=== PATIENT | female | born 1970 | race Caucasian/White ===

== ENCOUNTER 2021-06-17 06:17 | Emergency (ER) | payer SELFPAY ==
[2021-06-17 06:19] VITALS: BP 124/82; PULSE 83; RESP 20; TEMP 36.7; O2SAT 97; BMI 37.9
--- NOTE | 2021-06-17 06:24 | HMH.EDGENADL ---
ED Disposition Condition on Discharge: Good - Critical Care Critical Care Time: No <Fatou Canela Y - Last Filed: 06/17/21 08:00> <Sal Owens - Last Filed: 06/17/21 09:10> Clinical Impression: Elevated liver enzymes Abdominal pain Qualifiers: Abdominal location: generalized Qualified Code(s): R10.84 - Generalized abdominal pain Disposition: Home, Self-Care Instructions: DI for Acute Abdominal Pain Additional Instructions: see pcp for follow up Referrals: Provider,Referral, MD [Primary Care Provider] - Attestation: On 06/17/21, the high probability of a clinically significant, sudden or life threatening deterioration of the following system(s) required my full and direct attention, intervention and personal management. The time I documented below is in addition to time spent performing reported procedures but includes the following listed in this critical care notation. Medical Decision Making - Medical Records Medical records reviewed: Yes: I reviewed the patient's medical records. - Shantanu Inquiry Pt receiving controlled substance: No - Lab Data Result diagrams: 06/17/21 07:38 06/17/21 07:38 <Fatou Canela Y - Last Filed: 06/17/21 08:00> - Lab Data Lab results reviewed: Yes: I reviewed the patient's lab results. Result diagrams: 06/17/21 07:38 06/17/21 07:38 - CT Data CT Scan: Abdomen, Pelvis Time Received: 09:[address] Reviewed: Yes: I have viewed the radiologist's interpretation Preliminary Findings: Normal/NAD - ECG Data Tracing #1 Normal Sinus Rhythm: Yes Ischemic changes: non-specific ST-T wave changes <Sal Owens S - Last Filed: 06/17/21 09:10> Vital Signs: 06/17/21 06:19 06/17/21 07:00 06/17/21 07:31 Temperature 98.0 F Temperature Source Oral Pulse Rate 82 81 Pulse Rate [Right] 83 Respiratory Rate 20 16 16 Blood Pressure 119/86 128/68 Blood Pressure [Right Arm] 124/82 Blood Pressure Mean 96 88 Blood Pressure Mean [Right Arm] 96 Blood Pressure Source [Right Arm] Automatic Cuff 02 Sat by Pulse Oximetry 97 97 97 Oxygen Delivery Method Room Air 06/17/21 08:24 Temperature Temperature Source Pulse Rate 74 Pulse Rate [Right] Respiratory Rate 16 Blood Pressure 124/83 Blood Pressure [Right Arm] Blood Pressure Mean 96 Blood Pressure Mean [Right Arm] Blood Pressure Source [Right Arm] 02 Sat by Pulse Oximetry 97 Oxygen Delivery Method - Lab Data Lab Results 06/17/21 06:30: Urine Color Yellow, Urine Appearance Clear, Urine pH 6.0, Ur Specific Brenton 1.025, Urine Protein Negative, Urine Glucose (UA) Negative, Urine Ketones Negative, Urine Blood Negative, Urine Nitrate Negative, Urine Bilirubin Negative, Urine Urobilinogen 2.0, Ur Leukocyte Esterase Negative, Urine RBC None, Urine WBC 3-5, Ur Squamous Epith Cells 3-5, Urine Bacteria None 06/17/21 07:38: WBC 7.6, RBC 4.92, Hgb 14.8, Hct 47.6 H, MCV 96.8, MCH 30.1, MCHC 31.1 L, RDW 13.5, Plt Count 189, MPV 10.7 H, Neut % (Auto) 53.8, Lymph % (Auto) 34.6, Robeson % (Auto) 7.0, Eos % (Auto) 3.5, Baso % (Auto) 1.0, Neut # (Auto) 4.1, Lymph # (Auto) 2.6, Robeson # (Auto) 0.5, Eos # (Auto) 0.3, Baso # (Auto) 0.1 06/17/21 07:38: Sodium 144, Potassium 4.2, Chloride 109 H, Carbon Dioxide 30, Anion Gap 9.2, BUN 12, Creatinine 0.70, Estimated Creat Clear 146, Estimated GFR 88, Est GFR ( Amer) 107, Glucose 96, Calcium 9.5, Total Bilirubin 0.3, AST 220 H, ALT 172 H, Alkaline Phosphatase 157 H, Troponin I < 0.01, Total Protein 7.2, Albumin 3.9, Globulin 3.3 H, Albumin/Globulin Ratio 1.2 06/17/21 07:38: Amylase 66, Lipase 35 Orders (Tests/Meds): ED MEDICATIONS Discontinued Medications Generic Name Dose Route Start Last Admin Trade Name Freq PRN Reason Stop Dose Admin Iopamidol 75 ml 06/17/21 07:56 06/17/21 07:56 Iopamidol-370 (76%);100ml Bottle IV 06/17/21 07:57 75 ml ONCE ONE Administration Sodium Chloride 10 ml 10/01/21 07:56 06/17/21 07:56 Sodium Chloride 0.9%
[2021-06-17 06:44] LABS: Microscopic, Urine URINE MICROSCOPIC (MICROSCOPIC)
[2021-06-17 06:46] LABS: Appearance,Urine CLEAR (Clear); Bilirubin,Urine Negative (Negative); Blood, Urine Negative (Negative); Color,Urine YELLOW (Yellow); Glucose,Urine (UA) Negative (Negative); Ketones,Urine Negative (Negative); Leukocyte Esterase,Urine Negative (Negative); Nitrate,Urine Negative (Negative); Protein,Urine Negative (Negative); Specific Gravity, Urine 1.025 (1.005-1.030)
[2021-06-17 07:00] VITALS: BP 119/86; PULSE 82; RESP 16; O2SAT 97
--- NOTE | 2021-06-17 07:06 | CT_ITS ---
PROCEDURE: CT ABDOMEN PELVIS W CON CLINICAL INDICATION: abdominal pain COMPARISON: No exams were available for comparison TECHNIQUE: IV Contrast: 75ML Isovue 370 Oral Contrast None Axial images obtained with sagittal and coronal reformats. All CT scans at the facility use one or more dose reduction, viz: automated exposure control, ma/kV adjustment per patient size (including targeted exams where dose is matched to indication, i.e. head), or iterative reconstruction technique. FINDINGS: LOWER THORAX: Atelectatic changes are present in the right lung base posteriorly ABDOMEN & PELVIS: There is a small hiatal hernia. There is mild diffuse fatty liver infiltration. Prior cholecystectomy. No biliary dilatation. The spleen, adrenal glands, pancreas, and kidneys have an unremarkable appearance. No intestinal obstruction or free air. No evidence of appendicitis. No evidence of diverticulitis. There are few scattered colonic diverticula. Prior hysterectomy Degenerative disc disease L5-S1. Mild wedge compression changes of L2 which appears chronic. Tiny umbilical hernia containing fat IMPRESSION: 1. No acute finding. 2. Small hiatal hernia and other nonacute findings as detailed above.. Dictated by: Eliazar Go MD 06/17/2021 08:19 Eliazar Go MD in [facility] 06/17/2021 08:19
[2021-06-17 07:31] VITALS: BP 128/68; PULSE 81; RESP 16; O2SAT 97
--- NOTE | 2021-06-17 07:40 | PC.NURSE ---
Pt to CT
[2021-06-17 07:45] LABS: Basophils # 0.1 K/mm3 (0-0.2); Eosinophils # 0.3 K/mm3 (0.0-0.4); Eosinophils % 3.5 % (0.1-12.0); Hematocrit 47.6 % (37.0-47.0); Hemoglobin 14.8 g/dL (12.2-16.2); Lymphocytes # 2.6 K/mm3 (0.7-4.5); Lymphocytes % 34.6 % (10-50); Mean Corpuscular HGB Conc 31.1 g/dL (31.8-35.4); Mean Corpuscular Hemoglobin 30.1 pg (27.0-31.2); Mean Corpuscular Volume 96.8 fl (81-99); Mean Platelet Volume 10.7 fl (7.4-10.4); Monocytes # 0.5 K/mm3 (0.1-1.0); Neutrophils # 4.1 K/mm3 (1.8-7.8); Neutrophils % 53.8 % (37.0-80.0); Platelet Count 189 K/mm3 (142-424); Red Blood Count 4.92 M/mm3 (4.20-5.40); Red Cell Distribution Width 13.5 % (11.5-17.5); White Blood Count 7.6 K/mm3 (4.8-10.8)
[2021-06-17 07:50] LABS: Chloride 109 mmol/L (98-107); Potassium 4.2 mmoL/L (3.5-5.1); Sodium 144 mmol/L (136-145)
[2021-06-17 07:53] LABS: Alanine Aminotransferase 172 U/L (12-78); Albumin Level 3.9 g/dl (3.5-5.0); Albumin/Globulin Ratio 1.2 (1.1-1.8); Alkaline Phosphatase 157 U/L (38-126); Anion Gap 9.2 mEq/L (5-15); Aspartate Amino Transferase 220 U/L (14-36); Bilirubin,Total 0.3 mg/dl (0.2-1.3); Blood Urea Nitrogen 12 mg/dl (7-17); Carbon Dioxide 30 mmol/L (22.0-30.0); Creatinine Clearance Estimated 146 mL/min (50-200); Estimated Glomerular Filt Rate 88 ml/min (>60); GFR (African American) 107 ML/MIN (>60); Globulin 3.3 g/dL (1.3-3.2); Total Protein,Serum 7.2 g/dl (6.3-8.2)
[2021-06-17 07:54] LABS: Calcium 9.5 mg/dl (8.4-10.2); Glucose 96 mg/dl (74-100)
[2021-06-17 08:07] LABS: Troponin I < 0.01 ng/ml (0.00-0.034)
[2021-06-17 08:24] VITALS: BP 124/83; PULSE 74; RESP 16; O2SAT 97
[2021-06-17 08:35] LABS: Amylase 66 U/L (30-110)
[2021-06-17 08:36] LABS: Lipase 35 U/L (23-300)
--- NOTE | 2021-06-17 08:36 | ECG_ITS ---
APPROVED REPORT Exam: Resting ECG HR:75 bpm ECG Measurements Heart Rate [address] 130 P 57 QRSd 80 QRS 72 QT 396 T 49 QTc 442 Conclusion Normal sinus rhythm Low voltage QRS Borderline ECG Electronically signed by : Fabio Sales MD 06/17/2021 19:55:37
[2021-06-17 09:24] VITALS: BP 105/65; PULSE 72; RESP 16; TEMP 36.8; O2SAT 96
== END 2021-06-17 09:25 | disposition home or self-care (01) ==
PROVIDERS: Emergency Provider Emergency Medicine
DX: R10.84 Generalized abdominal pain (principal); Z85.42 Personal history of malignant neoplasm of other parts of uterus; Z88.0 Allergy status to penicillin; Z91.040 Latex allergy status
CPT/HCPCS: 74177; 80053; 81001; 82150; 83690; 84484; 85025; 93005; 99283; Q9967

== ENCOUNTER 2021-09-24 08:29 | Emergency (ER) | payer SELFPAY ==
[2021-09-24] VITALS (12 sets, daily range): BP systolic 92–144; BP diastolic 47–88; PULSE 68–87; RESP 17–18; TEMP 36.4–36.6; O2SAT 95–99; BMI 38.0
--- NOTE | 2021-09-24 08:36 | XR_ITS ---
PROCEDURE INFORMATION: Exam: XR Chest Exam date and time: 09/24/2021 8:36 AM Age: 50 years old Clinical indication: Cough TECHNIQUE: Imaging protocol: XR of the chest. Views: 1 view. COMPARISON: No relevant recent comparison exams are available. FINDINGS: Lungs: Prominent lung markings/peribronchial thickening without definite evidence of consolidation. Pleural spaces: No evidence of pleural effusion or pneumothorax. Heart/Mediastinum: Mild cardiomegaly with mild central pulmonary vascular congestion. Bones/joints: Chronic degenerative changes in the visualized spine. IMPRESSION: Chronic cardiopulmonary changes without evidence of an active lung parenchymal lesion. COMMENTS: Haziness in the lower lung chiang likely due to breast shadow rather than consolidation.
--- NOTE | 2021-09-24 08:45 | HMH.EDGENADL ---
ED Disposition Clinical Impression: Belching Abdominal pain Qualifiers: Abdominal location: upper abdomen, unspecified Qualified Code(s): R10.10 - Upper abdominal pain, unspecified Disposition: Home, Self-Care Condition on Discharge: Fair Instructions: DI for Abdominal Pain-Adult, DI for Nausea -- Adult Prescriptions: Dicyclomine HCl [Bentyl 10mg capsule] 10 mg PO TID PRN #12 cap PRN Reason: Cramping Transmission Status: Received by [facility] #[id number] Referrals: Provider,Referral, [Primary Care Provider] - Time of Disposition: :13 - Critical Care Critical Care Time: No Attestation: On , the high probability of a clinically significant, sudden or life threatening deterioration of the following system(s) required my full and direct attention, intervention and personal management. The time I documented below is in addition to time spent performing reported procedures but includes the following listed in this critical care notation. Medical Decision Making - Medical Records Medical records reviewed: Yes: I reviewed the patient's medical records. - Shantanu Inquiry Pt receiving controlled substance: No Vital Signs: 09/24/21 08:30 09/24/21 08:36 09/24/21 09:15 Temperature 97.6 F Temperature Source Oral Pulse Rate 84 82 Pulse Rate [Left Radial] 87 Respiratory Rate 18 18 18 Blood Pressure 144/88 H 135/80 Blood Pressure [Right Arm] 144/88 H Blood Pressure Mean 101 Blood Pressure Mean [Right Arm] 106 Blood Pressure Source [Right Arm] Automatic Cuff Blood Pressure Position [Right Arm] Sitting 02 Sat by Pulse Oximetry 98 98 96 Oxygen Delivery Method Room Air 09/24/21 09:30 09/24/21 10:25 09/24/21 11:00 Temperature Temperature Source Pulse Rate 76 72 70 Pulse Rate [Left Radial] Respiratory Rate 18 18 18 Blood Pressure 124/75 104/68 L 102/55 L Blood Pressure [Right Arm] Blood Pressure Mean 100 80 70 Blood Pressure Mean [Right Arm] Blood Pressure Source [Right Arm] Blood Pressure Position [Right Arm] 02 Sat by Pulse Oximetry 95 99 99 Oxygen Delivery Method 09/24/21 11:30 09/24/21 12:00 09/24/21 12:30 Temperature Temperature Source Pulse Rate 70 68 75 Pulse Rate [Left Radial] Respiratory Rate 18 18 18 Blood Pressure 116/76 109/73 L 116/60 Blood Pressure [Right Arm] Blood Pressure Mean 89 85 78 Blood Pressure Mean [Right Arm] Blood Pressure Source [Right Arm] Blood Pressure Position [Right Arm] 02 Sat by Pulse Oximetry 95 96 98 Oxygen Delivery Method 09/24/21 13:00 09/24/21 13:30 09/24/21 14:42 Temperature 98 F Temperature Source Pulse Rate 69 69 71 Pulse Rate [Left Radial] Respiratory Rate 18 18 17 Blood Pressure 96/57 L 92/47 L 110/62 Blood Pressure [Right Arm] Blood Pressure Mean 70 62 Blood Pressure Mean [Right Arm] Blood Pressure Source [Right Arm] Blood Pressure Position [Right Arm] 02 Sat by Pulse Oximetry 99 99 Oxygen Delivery Method Room Air - Lab Data Lab Results 09/24/21 09:00: WBC 9.2, RBC 5.14, Hgb 15.3, Hct 49.3 H, MCV 95.9, MCH 29.7, MCHC 31.0 L, RDW 13.8, Plt Count 207, MPV 11.3 H, Neut % (Auto) 49.3, Lymph % (Auto) 40.5, Whitley % (Auto) 7.5, Eos % (Auto) 2.7, Baso % (Auto) 4.1 H, Neut # (Auto) 4.5, Lymph # (Auto) 3.7, Whitley # (Auto) 0.7, Eos # (Auto) 0.3, Baso # (Auto) 0.4 H 09/24/21 09:00: PT 10.2, INR 0.90, APTT 25.9 09/24/21 09:00: Sodium 140, Potassium 3.8, Chloride 109 H, Carbon Dioxide 27, Anion Gap 7.8, BUN 13, Creatinine 0.70, Estimated Creat Clear 146, Estimated GFR 88, Est GFR ( Amer) 107, Glucose 118 H, Calcium 9.7, Total Bilirubin 0.4, AST 183 H, ALT 165 H, Alkaline Phosphatase 147 H, Total Protein 7.3, Albumin 4.1, Globulin 3.2, Albumin/Globulin Ratio 1.3, Lipase 50 09/24/21 09:00: NT-Pro-B Natriuret Pep 35.9 09/24/21 13:51: Lactate 0.8 Result diagrams: 09/24/21 09:00 09/24/21 09:00 Orders (Tests/Meds): ED MEDICATIONS Discontin
[2021-09-24 09:17] LABS: Basophils # 0.4 K/mm3 (0-0.2); Basophils % 4.1 % (0.1-2.0); Eosinophils # 0.3 K/mm3 (0.0-0.4); Eosinophils % 2.7 % (0.1-12.0); Hematocrit 49.3 % (37.0-47.0); Hemoglobin 15.3 g/dL (12.2-16.2); Lymphocytes # 3.7 K/mm3 (0.7-4.5); Lymphocytes % 40.5 % (10-50); Mean Corpuscular Hemoglobin 29.7 pg (27.0-31.2); Mean Corpuscular Volume 95.9 fl (81-99); Mean Platelet Volume 11.3 fl (7.4-10.4); Monocytes # 0.7 K/mm3 (0.1-1.0); Monocytes % 7.5 % (1.7-9.3); Neutrophils # 4.5 K/mm3 (1.8-7.8); Neutrophils % 49.3 % (37.0-80.0); Platelet Count 207 K/mm3 (142-424); Red Blood Count 5.14 M/mm3 (4.20-5.40); Red Cell Distribution Width 13.8 % (11.5-17.5); White Blood Count 9.2 K/mm3 (4.8-10.8)
--- NOTE | 2021-09-24 09:17 | CT_ITS ---
PROCEDURE INFORMATION: Exam: CT Abdomen And Pelvis With Contrast Exam date and time: 09/24/2021 9:17 AM Age: 50 years old Clinical indication: Bloating and vomiting; Additional info: Abdominal pain, vomiting TECHNIQUE: Imaging protocol: Computed tomography of the abdomen and pelvis with contrast. Radiation optimization: All CT scans at this facility use at least one of these dose optimization techniques: automated exposure control; mA and/or kV adjustment per patient size (includes targeted exams where dose is matched to clinical indication); or iterative reconstruction. Contrast material: ISOVUE; Contrast volume: 75 ml; Contrast route: IV; COMPARISON: CT ABDOMEN PELVIS W CON 06/17/2021 7:40 AM FINDINGS: Lungs: Interstitial prominence and mild dependent airspace disease. Stable 5 mm right lower lobe nodule.For patients at low risk (minimal or absent history of smoking and of other known risk factors), no routine follow-up is indicated. For patients at high risk (history of smoking or of other known risk factors), consider optional CT Chest at 12 months. (Reference: [facility]). Small hiatal hernia. Liver: Fatty infiltration of the liver. Gallbladder and bile ducts: Status post cholecystectomy. Pancreas: No pancreatic mass or ductal dilatation. Spleen: No splenomegaly. Adrenal glands: Unremarkable adrenals. Kidneys and ureters: Normal renal morphology. No hydronephrosis. Stomach and bowel: Prominent stool and diverticula, without pericolonic inflammation. Appendix: No acute appendicitis. Intraperitoneal space: No significant free fluid. Vasculature: Normal caliber of the abdominal aorta. Lymph nodes: Subcentimeter lymph nodes. Urinary bladder: Bladder dilatation. Reproductive: Status post hysterectomy. Bones/joints: Degenerative change and disc bulging. Chronic compression deformities in the lumbar spine. Soft tissues: Fat containing umbilical hernia. IMPRESSION: 1. No acute inflammatory process in the abdomen or pelvis. 2. Additional findings as described above.
[2021-09-24 09:25] LABS: Alanine Aminotransferase 165 U/L (12-78); Albumin Level 4.1 g/dl (3.5-5.0); Albumin/Globulin Ratio 1.3 (1.1-1.8); Alkaline Phosphatase 147 U/L (38-126); Anion Gap 7.8 mEq/L (5-15); Aspartate Amino Transferase 183 U/L (14-36); Bilirubin,Total 0.4 mg/dl (0.2-1.3); Blood Urea Nitrogen 13 mg/dl (7-17); Calcium 9.7 mg/dl (8.4-10.2); Carbon Dioxide 27 mmol/L (22.0-30.0); Chloride 109 mmol/L (98-107); Creatinine Clearance Estimated 146 mL/min (50-200); Estimated Glomerular Filt Rate 88 ml/min (>60); GFR (African American) 107 ML/MIN (>60); Globulin 3.2 g/dL (1.3-3.2); Glucose 118 mg/dl (74-100); Lipase 50 U/L (23-300); Potassium 3.8 mmoL/L (3.5-5.1); Sodium 140 mmol/L (136-145); Total Protein,Serum 7.3 g/dl (6.3-8.2)
[2021-09-24 09:27] LABS: Activated Partial Thrombo Time 25.9 seconds (22.8-30.6); Prothrombin Time 10.2 seconds (10.1-12.5)
[2021-09-24 09:34] LABS: NT Pro Brain Natriuretic Pep. 35.9 pg/mL (0-125)
--- NOTE | 2021-09-24 11:29 | PC.NURSE ---
HAD TO WASTE 1 BENTYL PT DROPPED ON FLOOR
[2021-09-24 14:10] LABS: Lactic Acid 0.8 mmol/L (0.7-2.1)
--- NOTE | 2021-09-28 00:32 | PC.NURSE ---
Medical records sent to [facility]
== END 2021-09-24 14:45 | disposition home or self-care (01) ==
PROVIDERS: Emergency Provider Emergency Medicine
DX: R10.10 Upper abdominal pain, unspecified (principal); R14.2 Eructation; R06.02 Shortness of breath; R09.89 Other specified symptoms and signs involving the circulatory and respiratory systems
CPT/HCPCS: 71045; 74177; 80053; 83605; 83690; 83880; 85025; 85610; 85730; 99282; Q9967

== ENCOUNTER → 2022-01-27 13:43 | Outpatient (CLI) | payer SELFPAY | LOC: COVID.OUT 13:46 | PROVIDERS: Visit Provider Nurse Practitioner Family | DX: Z01.812 Encounter for preprocedural laboratory examination (principal); Z11.52 Encounter for screening for COVID-19 | CPT/HCPCS: C9803; U0003; U0005 ==

== ENCOUNTER 2022-01-27 14:00 | Emergency (ER) | payer SELFPAY ==
--- NOTE | 2022-01-27 14:04 | XR_ITS ---
FINAL REPORT CLINICAL HISTORY: PAIN. shoulder pain x5 months. no recent injury or trauma. FINDINGS: RIGHT SHOULDER 3 views of the right shoulder were obtained. There is no acute fracture or dislocation. There are mild degenerative changes of the acromioclavicular joint. There is no soft tissue abnormality. IMPRESSION: Mild degenerative change of the acromioclavicular joint. No acute bony abnormality. Reviewed, Interpreted and Dictated by Efren Epps III, MD Transcribed by Elsa Josue Authenticated by Efren Epps III, MD on 01/27/2022 03:13:[address] [facility]
--- NOTE | 2022-01-27 14:04 | XR_ITS ---
FINAL REPORT CLINICAL HISTORY: PAIN. shoulder pain x5 months. no recent injury or trauma. FINDINGS: LEFT SHOULDER 3 views of the left shoulder were obtained. There is no acute fracture or dislocation. There are mild degenerative changes of the acromioclavicular joint. There is no soft tissue abnormality. IMPRESSION: Mild degenerative change of the acromioclavicular joint. No acute bony abnormality Reviewed, Interpreted and Dictated by Efren Epps III, MD Transcribed by Elsa Josue Authenticated by Efren Epps III, MD on 01/27/2022 03:13:23 PM [facility]
[2022-01-27 14:25] VITALS: BP 133/66; PULSE 84; RESP 19; TEMP 36.6; O2SAT 100; BMI 22.1
--- NOTE | 2022-01-27 14:37 | HMH.EDUTC ---
[facility] [place] Clinical Impression: Bilateral shoulder pain Qualifiers: Chronicity: unspecified Qualified Code(s): M25.511 - Pain in right shoulder Disposition: Home, Self-Care Condition on Discharge: Good Instructions: Shoulder Tendinopathy, DI for Shoulder Pain Additional Instructions: Rest the extremities. Follow up with Dr. Arriola (orthopedics). I put in a referral but you need to call his office and schedule an appointment. Follow up with your regular doctor. GO TO THE ER FOR ANY WORSENING SYMPTOMS Referrals: Provider,MD Coleen [Primary Care Provider] - Sunil Arriola MD [Staff Physician] - Time of Disposition: 15:45 Medical Decision Making - Medical Records Medical records reviewed: No: I reviewed the patient's medical records. - Shantanu Inquiry Pt receiving controlled substance: No Vital Signs: 01/27/22 14:25 01/27/22 15:54 Temperature 97.8 F 97.8 F Temperature Source Oral Pulse Rate 84 Pulse Rate [Right Brachial] 84 Respiratory Rate 19 19 Blood Pressure 133/66 Blood Pressure [Right Arm] 133/66 Blood Pressure Mean [Right Arm] 88 Blood Pressure Source [Right Arm] Automatic Cuff Blood Pressure Position [Right Arm] Sitting 02 Sat by Pulse Oximetry 100 Oxygen Delivery Method Room Air [facility] [place] HPI - General Stated complaint: rt shoulder pain Time Seen by Provider: 01/27/22 14:30 - History of Present Illness Provider Complaint: She states that she has had bilateral shoulder pain since possibly injuring both her shoulders this past September. She states that she cannot raise her arms over her head due to the shoulder pain. - Related Data Previous Rx's Medication Instructions Recorded Dicyclomine HCl [Bentyl 10mg 10 mg PO TID PRN #12 cap 09/24/21 capsule] Allergies Allergy/AdvReac Type Severity Reaction Status Date / Time ampicillin Allergy Verified 01/27/22 14:40 codeine Allergy Verified 06/17/21 07:05 latex Allergy Verified 06/17/21 07:05 Penicillins Allergy Verified 06/17/21 07:05 [facility] History - Hepatitis A Screen Attestation statement:: This patient has been screened for Hepatitis A risk factors. I have reviewed the patient's past medical history: Yes ROS Obtained: Yes All systems reviewed & no additional complaints - Constitutional Constitutional: Denies chills, Denies fever(s) - Eyes Eyes: Denies eye discharge - ENT Ears, Nose, Mouth, and Throat: Denies dizziness, Denies otalgia, Denies sore throat, Denies vertigo/dizziness - Cardiovascular Cardiovascular: Denies chest pain - Respiratory Respiratory: Denies chest congestion, Denies cough - Musculoskeletal Musculoskeletal: Reports as per HPI - Integumentary/Breasts Skin/Breast: Denies redness, Denies rash, Denies wounds - Neurologic Neurologic: Denies tingling/numbness/burning sensations Physical Exam - General General appearance: alert, in no apparent distress - Head Head exam: atraumatic, normocephalic, normal inspection - Eye Eye exam: Present: normal appearance, PERRL, EOMI - ENT ENT exam: Present: normal exam, normal oropharynx, mucous membranes moist, TM's normal bilaterally, normal external ear exam - Neck Neck exam: Present: normal inspection, full ROM, trachea midline. Absent: meningismus, lymphadenopathy - Chest Chest inspection: Present: normal inspection, symmetric chest wall rise. Absent: tenderness - Respiratory Respiratory exam: Present: normal lung sounds bilaterally. Absent: respiratory distress - Cardiovascular Cardiovascular exam: Present: regular rate, normal rhythm. Absent: JVD - Abdominal Exam Abdominal exam: Present: soft, normal bowel sounds. Absent: distention, tenderness, guarding - Extremities Exam Extremities exam: Present: normal inspection, full ROM, normal capillary refill. Absent: calf tenderness - Back Exam Back exam: Present: normal inspection. Absent: tenderness - Neurological Exam Neur
[2022-01-27 15:54] VITALS: BP 133/66; PULSE 84; RESP 19; TEMP 36.6; O2SAT 100
== END 2022-01-27 15:56 | disposition home or self-care (01) ==
PROVIDERS: Emergency Provider Nurse Practitioner Family
DX: M25.511 Pain in right shoulder (principal); M25.512 Pain in left shoulder; Z88.0 Allergy status to penicillin; Z88.5 Allergy status to narcotic agent; Z88.8 Allergy status to other drugs, medicaments and biological substances; Z91.040 Latex allergy status
CPT/HCPCS: 73030; 99213; G0463

== ENCOUNTER → 2022-02-02 16:21 | Outpatient (CLI) | payer SELFPAY ==
[2022-02-02 17:55] LABS: Alanine Aminotransferase 76 U/L (12-78); Albumin Level 3.8 g/dl (3.5-5.0); Albumin/Globulin Ratio 1.3 (1.1-1.8); Alkaline Phosphatase 148 U/L (38-126); Anion Gap 11.8 mEq/L (5-15); Aspartate Amino Transferase 85 U/L (14-36); Bilirubin,Total 0.4 mg/dl (0.2-1.3); Blood Urea Nitrogen 5 mg/dl (7-17); Calcium 9.2 mg/dl (8.4-10.2); Carbon Dioxide 28 mmol/L (22.0-30.0); Chloride 108 mmol/L (98-107); Estimated Glomerular Filt Rate 88 ml/min (>60); GFR (African American) 106 ML/MIN (>60); Gamma Glutamyl Transpeptidase 47 U/L (12-43); Globulin 2.9 g/dL (1.3-3.2); Glucose 140 mg/dl (74-100); Potassium 3.8 mmoL/L (3.5-5.1); Sodium 144 mmol/L (136-145); Total Protein,Serum 6.7 g/dl (6.3-8.2)
[2022-02-03 15:20] LABS: Hemoglobin 14.4 g/dL (12.2-16.2); INR 0.91 (0.9-1.1); Prothrombin Time 10.4 seconds (10.1-12.5); Red Blood Count 4.75 M/mm3 (4.20-5.40); White Blood Count 7.9 K/mm3 (4.8-10.8)
[2022-02-03 15:21] LABS: Mean Corpuscular HGB Conc 32.7 g/dL (31.8-35.4); Mean Corpuscular Hemoglobin 30.3 pg (27.0-31.2); Mean Corpuscular Volume 92.6 fl (81-99); Platelet Count 194 K/mm3 (142-424); Red Cell Distribution Width 13.6 % (11.5-17.5)
[2022-02-04 08:16] LABS: Immunoglobulin G, Qn 1105 mg/dL (586-1602)
[2022-02-04 09:14] LABS: Hep A Ab, IgM Negative (Negative)
[2022-02-04 18:12] LABS: Actin (Smooth Muscle) Antibody 30 Units (0-19); Liver-Kidney Microsomal Ab 1.4 Units (0.0-20.0)
== END ==
PROVIDERS: PCP Internal Medicine; Visit Provider Internal Medicine
DX: B18.2 Chronic viral hepatitis C (principal); R74.8 Abnormal levels of other serum enzymes; Z79.899 Other long term (current) drug therapy
CPT/HCPCS: 36415; 80053; 82784; 82977; 85014; 85018; 85025; 85048; 85049; 85610; 86255; 86376; 86708; 87522

== ENCOUNTER → 2022-03-28 14:23 | Outpatient (CLI) | payer MEDICAID, SELFPAY ==
[2022-03-28 17:11] LABS: Hematocrit 46.4 % (37.0-47.0); Hemoglobin 14.2 g/dL (12.2-16.2); Mean Corpuscular HGB Conc 30.7 g/dL (31.8-35.4); Mean Corpuscular Hemoglobin 30.8 pg (27.0-31.2); Mean Corpuscular Volume 100.2 fl (81-99); Platelet Count 216 K/mm3 (142-424); Red Blood Count 4.63 M/mm3 (4.20-5.40); Red Cell Distribution Width 14.3 % (11.5-17.5); White Blood Count 8.2 K/mm3 (4.8-10.8)
[2022-03-28 17:21] LABS: Prothrombin Time 10.2 seconds (10.1-12.5)
[2022-03-28 17:41] LABS: Chloride 105 mmol/L (98-107); Potassium 4.9 mmoL/L (3.5-5.1); Sodium 139 mmol/L (136-145)
[2022-03-28 17:44] LABS: Alanine Aminotransferase 46 U/L (12-78); Albumin/Globulin Ratio 1.3 (1.1-1.8); Alkaline Phosphatase 166 U/L (38-126); Anion Gap 9.9 mEq/L (5-15); Aspartate Amino Transferase 50 U/L (14-36); Bilirubin,Total 0.5 mg/dl (0.2-1.3); Blood Urea Nitrogen 12 mg/dl (7-17); Calcium 9.9 mg/dl (8.4-10.2); Carbon Dioxide 29 mmol/L (22.0-30.0); Estimated Glomerular Filt Rate 88 ml/min (>60); GFR (African American) 106 ML/MIN (>60); Glucose 166 mg/dl (74-100)
== END ==
PROVIDERS: Visit Provider Internal Medicine
DX: B18.2 Chronic viral hepatitis C (principal); Z79.899 Other long term (current) drug therapy
CPT/HCPCS: 36415; 80053; 85014; 85018; 85048; 85049; 85610; 87522

== ENCOUNTER → 2022-03-31 19:11 | Outpatient (CLI) | payer MEDICAID, SELFPAY | LOC: COVID.OUT 19:21 → LAB 19:36 | DX: Z01.812 Encounter for preprocedural laboratory examination (principal); Z20.822 Contact with and (suspected) exposure to COVID-19 | CPT/HCPCS: C9803; U0003; U0005 ==

== ENCOUNTER → 2022-06-21 17:25 | Outpatient (CLI) | payer MEDICAID, SELFPAY ==
[2022-06-21 18:06] LABS: Chloride 103 mmol/L (98-107); Sodium 141 mmol/L (136-145)
[2022-06-21 18:07] LABS: Potassium 4.8 mmoL/L (3.5-5.1)
[2022-06-21 18:09] LABS: Alanine Aminotransferase 133 U/L (12-78); Albumin Level 4.3 g/dl (3.5-5.0); Albumin/Globulin Ratio 1.2 (1.1-1.8); Alkaline Phosphatase 212 U/L (38-126); Anion Gap 13.8 mEq/L (5-15); Aspartate Amino Transferase 172 U/L (14-36); Bilirubin,Total 0.6 mg/dl (0.2-1.3); Blood Urea Nitrogen 12 mg/dl (7-17); Carbon Dioxide 29 mmol/L (22.0-30.0); Estimated Glomerular Filt Rate 88 ml/min (>60); GFR (African American) 106 ML/MIN (>60); Globulin 3.6 g/dL (1.3-3.2); Total Protein,Serum 7.9 g/dl (6.3-8.2)
[2022-06-21 18:10] LABS: Calcium 9.4 mg/dl (8.4-10.2); Glucose 109 mg/dl (74-100)
[2022-06-21 18:11] LABS: Prothrombin Time 9.8 seconds (10.1-12.5)
[2022-06-21 18:12] LABS: Basophils # 0.3 K/mm3 (0-0.2); Basophils % 2.8 % (0.1-2.0); Eosinophils # 0.1 K/mm3 (0.0-0.4); Eosinophils % 1.5 % (0.1-12.0); Hematocrit 49.4 % (37.0-47.0); Hemoglobin 15.5 g/dL (12.2-16.2); Lymphocytes % 32.3 % (10-50); Mean Corpuscular HGB Conc 31.4 g/dL (31.8-35.4); Mean Corpuscular Hemoglobin 30.1 pg (27.0-31.2); Mean Platelet Volume 10.4 fl (7.4-10.4); Monocytes # 0.5 K/mm3 (0.1-1.0); Monocytes % 5.5 % (1.7-9.3); Neutrophils # 5.4 K/mm3 (1.8-7.8); Neutrophils % 57.9 % (37.0-80.0); Platelet Count 217 K/mm3 (142-424); Red Blood Count 5.15 M/mm3 (4.20-5.40); Red Cell Distribution Width 13.7 % (11.5-17.5); White Blood Count 9.3 K/mm3 (4.8-10.8)
== END ==
PROVIDERS: Visit Provider Internal Medicine
DX: B18.2 Chronic viral hepatitis C (principal); Z79.899 Other long term (current) drug therapy
CPT/HCPCS: 36415; 80053; 85025; 85610; 87522

== ENCOUNTER → 2022-10-17 18:01 | Outpatient (CLI) | payer MEDICAID, SELFPAY ==
[2022-10-17 19:05] LABS: INR 0.93 (0.9-1.1); Prothrombin Time 10.1 seconds (10.1-12.5)
[2022-10-17 19:26] LABS: Hematocrit 44.2 % (37.0-47.0); Hemoglobin 13.8 g/dL (12.2-16.2); Mean Corpuscular HGB Conc 31.3 g/dL (31.8-35.4); Mean Corpuscular Hemoglobin 28.8 pg (27.0-31.2); Platelet Count 241 K/mm3 (142-424); Red Blood Count 4.81 M/mm3 (4.20-5.40); Red Cell Distribution Width 14.2 % (11.5-17.5); White Blood Count 9.5 K/mm3 (4.8-10.8)
[2022-10-17 19:27] LABS: Chloride 109 mmol/L (98-107); Sodium 145 mmol/L (136-145)
[2022-10-17 19:28] LABS: Potassium 4.3 mmoL/L (3.5-5.1)
[2022-10-17 19:30] LABS: Alanine Aminotransferase 79 U/L (12-78); Albumin Level 3.9 g/dl (3.5-5.0); Albumin/Globulin Ratio 1.2 (1.1-1.8); Alkaline Phosphatase 168 U/L (38-126); Anion Gap 8.3 mEq/L (5-15); Aspartate Amino Transferase 98 U/L (14-36); Bilirubin,Total 0.5 mg/dl (0.2-1.3); Blood Urea Nitrogen 9 mg/dl (7-17); Carbon Dioxide 32 mmol/L (22.0-30.0); Estimated Glomerular Filt Rate 75 ml/min (>60); GFR (African American) 91 ML/MIN (>60); Globulin 3.2 g/dL (1.3-3.2); Total Protein,Serum 7.1 g/dl (6.3-8.2)
[2022-10-17 19:31] LABS: Calcium 9.5 mg/dl (8.4-10.2); Glucose 94 mg/dl (74-100)
== END ==
PROVIDERS: Visit Provider Internal Medicine
DX: B18.2 Chronic viral hepatitis C (principal); Z79.899 Other long term (current) drug therapy
CPT/HCPCS: 36415; 80053; 85014; 85018; 85048; 85049; 85610; 87522

== ENCOUNTER → 2023-02-20 13:48 | Outpatient (CLI) | payer MEDICAID, SELFPAY ==
[2023-02-20 16:47] LABS: Amphetamine/Metha Screen,Urine Negative ng/ml (<1000)
[2023-02-20 16:48] LABS: Barbiturates Screen,Urine Negative ng/ml (<200); Benzodiazepines Screen,Urine Negative ng/ml (<200)
[2023-02-20 16:49] LABS: Cannabinoid Screen,Urine Negative ng/ml (<50)
[2023-02-20 16:50] LABS: Cocaine Screen,Urine Negative ng/ml (<300); Methadone Screen,Urine Negative ng/ml (<300)
[2023-02-20 16:51] LABS: Opiate Screen,Urine Negative ng/ml (<300)
[2023-02-20 16:52] LABS: Phencyclidine Screen,Urine Negative ng/ml (<25)
== END ==
PROVIDERS: Visit Provider Nurse Practitioner Psychiatric/Mental Health
DX: F41.1 Generalized anxiety disorder (principal)
CPT/HCPCS: 80305

== ENCOUNTER 2023-06-25 03:50 | Emergency (ER) | payer MEDICAID, SELFPAY ==
[2023-06-25] VITALS (11 sets, daily range): BP systolic 117–146; BP diastolic 71–91; PULSE 69–80; RESP 12–23; TEMP 36.6–36.7; O2SAT 94–97; BMI 39.0
--- NOTE | 2023-06-25 03:48 | ECG_ITS ---
APPROVED REPORT Exam: Resting ECG HR:80 bpm ECG Measurements Heart Rate 80 AXES IA 109 P 63 QRSd 90 QRS 85 QT 381 T 51 QTc 417 Conclusion SINUS RHYTHM WITH SHORT IA INTERVAL BORDERLINE ECG UNCONFIRMED REPORT Electronically signed by : Fabio Sales MD 06/25/2023 19:38:50
--- NOTE | 2023-06-25 03:59 | XR_ITS ---
PROCEDURE INFORMATION: Exam: XR Chest Exam date and time: 06/25/2023 4:19 AM Age: 52 years old Clinical indication: Other: Chest pain TECHNIQUE: Imaging protocol: Radiologic exam of the chest. Views: 1 view. COMPARISON: CR XR CHEST PORTABLE 09/24/2021 8:44 AM FINDINGS: Lungs: Unremarkable. No consolidation. Pleural spaces: Unremarkable. No pleural effusion. No pneumothorax. Heart/Mediastinum: Unremarkable. No cardiomegaly. Bones/joints: Unremarkable. IMPRESSION: No acute findings.
[2023-06-25 04:12] LABS: Basophils # 0.1 K/mm3 (0-0.2); Basophils % 0.5 % (0.1-2.0); Eosinophils # 0.2 K/mm3 (0.0-0.4); Eosinophils % 2.6 % (0.1-12.0); Hematocrit 47.8 % (37.0-47.0); Hemoglobin 14.6 g/dL (12.2-16.2); Lymphocytes # 3.6 K/mm3 (0.7-4.5); Lymphocytes % 39.3 % (10-50); Mean Corpuscular HGB Conc 30.6 g/dL (31.8-35.4); Mean Corpuscular Hemoglobin 29.2 pg (27.0-31.2); Mean Corpuscular Volume 95.3 fl (81-99); Mean Platelet Volume 9.9 fl (7.4-10.4); Monocytes # 0.4 K/mm3 (0.1-1.0); Monocytes % 4.9 % (1.7-9.3); Neutrophils # 4.7 K/mm3 (1.8-7.8); Neutrophils % 52.6 % (37.0-80.0); Platelet Count 178 K/mm3 (142-424); Red Blood Count 5.01 M/mm3 (4.20-5.40)
[2023-06-25 04:16] LABS: Alanine Aminotransferase 133 U/L (12-78); Albumin Level 3.8 g/dl (3.5-5.0); Alkaline Phosphatase 154 U/L (38-126); Anion Gap 8.6 mEq/L (5-15); Aspartate Amino Transferase 136 U/L (14-36); Bilirubin,Total 0.5 mg/dl (0.2-1.3); Blood Urea Nitrogen 15 mg/dl (7-17); Carbon Dioxide 26 mmol/L (22.0-30.0); Chloride 109 mmol/L (98-107); Creatinine Clearance Estimated 152 mL/min (50-200); Estimated Glomerular Filt Rate 88 ml/min (>60); GFR (African American) 106 ML/MIN (>60); Globulin 3.7 g/dL (1.3-3.2); Glucose 108 mg/dl (74-100); Potassium 4.6 mmoL/L (3.5-5.1); Sodium 139 mmol/L (136-145); Total Protein,Serum 7.5 g/dl (6.3-8.2)
[2023-06-25 04:21] LABS: D-Dimer 0.77 ug/mL (0.0-0.5)
[2023-06-25 04:30] LABS: Troponin I < 0.01 ng/ml (0.00-0.034)
--- NOTE | 2023-06-25 05:25 | HMH.EDGENADL ---
Discharge Plan Disposition Patient Disposition: Home, Self-Care Prescriptions Prescriptions: No Action clonidine HCl 0.1 mg tablet 0.1 mg PO HS PRN (Reason: Insomnia) Rx Instructions: One to two tablets at night PRN for insomnia alprazolam 1 mg tablet 1 mg PO QID Patient Comments: TAKE 1 TABLET BY MOUTH FOUR TIMES A DAY NEEDED FOR ANXIETY lamotrigine 100 mg tablet 100 mg PO BID bupropion HCl 150 mg tablet extended release 24 hr 150 mg PO DAILY Activity Restrictions/Add. Instructions Additional Instructions/Restrictions: Please establish care with a primary care provider. Please return to the emergency department if you develop any new or worsening symptoms or become concerned for your health. Clinical Impressions Clinical Impression: Chest pain Qualifiers: Chest pain type: unspecified Qualified Code(s): R07.9 - Chest pain, unspecified Discharge ED Provider: Zacarias Lutz Adult HPI General Chief complaint: Chest Pain Stated complaint: Chest pain Time Seen by Provider: 06/25/23 03:52 Mode of Arrival: EMS Source of Information: Patient and EMS Limitations: No Limitations Description of Symptoms (Recalled from ER Triage Doc. by RN): Patient arrived via EMS for sharp chest pain that started suddenly while watching television. Patient reports the pain as 10/10 upon onset, she took 8 (eight) 81mg aspirin tablets and her home dose of xanax. EMS administered 2 SL nitroglicerin with minimal improvement of pain. Upon triage patient reports pain as 5/10. History of Present Illness HPI narrative: 52-year-old female no reported cardiac history presents with sudden central/left-sided onset chest pain. She was watching TV at the time. It was initially severe, she took some Xanax because she thought it was an anxiety issue. She also took 8 aspirins. The pain happened around 11 PM. It did not go away and so she called EMS. By the time she arrived she reports the pain is significantly improved. Not worse with deep inspiration. She has no history of blood clots, no personal cardiac history but does report extensive family cardiac history. She reports that she does not have a primary care doctor, only takes medications for her psychiatric comorbidities. No recent fever or illness, no respiratory complaints. 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 Also reports history of chronic hepatitis C that was resistant to initial antiviral therapy. Related Data Home Medications Medication Instructions Recorded Confirmed alprazolam 1 mg tablet 1 mg PO QID 06/25/23 06/25/23 bupropion HCl 150 mg 24 hr tablet, 150 mg PO DAILY 06/25/23 06/25/23 extended release clonidine HCl 0.1 mg tablet 0.1 mg PO HS PRN Insomnia 06/25/23 06/25/23 lamotrigine 100 mg tablet 100 mg PO BID 06/25/23 06/25/23 Allergies Allergy/AdvReac Type Severity Reaction Status Date / Time ampicillin Allergy Verified 01/27/22 14:40 codeine Allergy Verified 06/17/21 07:05 latex Allergy Verified 06/17/21 07:05 Penicillins Allergy Verified 06/17/21 07:05 PFSH [facility] Disclaimer: The information contained in this section may have been updated after the patient was seen, as this information can be updated by other users. Social History Smoking Status: Current every day smoker alcohol intake: never current occupational status: other Travel in the last 8 weeks: None ROS Obtained: Yes All systems reviewed & no additional complaints except as documented Physical Exam General General appearance: alert and anxious Head Head exam: atraumatic and normocephalic Eye Eye exam: Present normal appearance, PERRL, EOMI and other (Xanthelasmas noted) ENT ENT exam: Present normal oropharynx and normal external ear exam Neck Neck exam: Present normal inspection and full ROM Chest Chest inspection: Present normal inspection and symmetric chest wall rise; A
[2023-06-25 07:02] LABS: Troponin I < 0.01 ng/ml (0.00-0.034)
--- NOTE | 2023-06-25 07:23 | PC.NURSE ---
Pt has been given d/c instructions. She is awaiting for her ride home. Pt belonging bag given to pt
== END 2023-06-25 07:47 | disposition home or self-care (01) ==
PROVIDERS: Emergency Provider Emergency Medicine
DX: R07.89 Other chest pain (principal); F17.210 Nicotine dependence, cigarettes, uncomplicated; B18.2 Chronic viral hepatitis C; F41.1 Generalized anxiety disorder; F33.9 Major depressive disorder, recurrent, unspecified
CPT/HCPCS: 71045; 80053; 84484; 85025; 85378; 93005; 99284

== ENCOUNTER → 2023-07-23 09:55 | Outpatient (CLI) | payer MEDICAID, SELFPAY ==
--- NOTE | 2023-07-23 10:03 | US_ITS ---
FINAL REPORT TECHNIQUE: Sonographic images of the right upper quadrant were obtained. CLINICAL HISTORY: HEP C CHRONIC COMPARISON: None FINDINGS: PANCREAS: The tail of the pancreas is not well visualized secondary to overlying bowel gas. The head of the pancreas is unremarkable. LIVER: There is fatty infiltration of the liver.. No focal hepatic lesion. No intrahepatic biliary ductal dilatation. GALLBLADDER: The gallbladder has been surgically resected.. . COMMON DUCT: 4 mm. RIGHT KIDNEY: The right kidney measures 10.4 cm. There is no hydronephrosis, mass, or stone. FREE FLUID: None. IMPRESSION: Prior cholecystectomy. Fatty infiltration of the liver. Reviewed, Interpreted and Dictated by Ashlie Mcdonald MD Transcribed by Kelly Bernard Authenticated and [facility]
[2023-07-23 11:27] LABS: Hemoglobin 14.5 g/dL (12.2-16.2); Mean Corpuscular HGB Conc 32.2 g/dL (31.8-35.4); Mean Corpuscular Hemoglobin 30.9 pg (27.0-31.2); Mean Corpuscular Volume 95.7 fl (81-99); Platelet Count 138 K/mm3 (142-424); Red Cell Distribution Width 13.7 % (11.5-17.5); White Blood Count 7.4 K/mm3 (4.8-10.8)
[2023-07-23 11:32] LABS: INR 0.96 (0.9-1.1); Prothrombin Time 10.4 seconds (10.1-12.5)
[2023-07-23 11:57] LABS: Chloride 108 mmol/L (98-107)
[2023-07-23 11:58] LABS: Potassium 4.5 mmoL/L (3.5-5.1); Sodium 142 mmol/L (136-145)
[2023-07-23 12:00] LABS: Blood Urea Nitrogen 11 mg/dl (7-17); Estimated Glomerular Filt Rate 88 ml/min (>60)
[2023-07-23 12:01] LABS: Alanine Aminotransferase 191 U/L (12-78); Albumin Level 3.9 g/dl (3.5-5.0); Albumin/Globulin Ratio 1.3 (1.1-1.8); Alkaline Phosphatase 142 U/L (38-126); Anion Gap 10.5 mEq/L (5-15); Aspartate Amino Transferase 160 U/L (14-36); Bilirubin,Total 0.5 mg/dl (0.2-1.3); Calcium 8.7 mg/dl (8.4-10.2); Carbon Dioxide 28 mmol/L (22.0-30.0); GFR (African American) 106 ML/MIN (>60); Globulin 3.1 g/dL (1.3-3.2); Glucose 124 mg/dl (74-100); HCG Qualitative, Serum Negative (Negative)
[2023-07-24 12:26] LABS: HIV Screen 4th Generation wRfx Non Reactive (Non Reactive)
[2023-07-24 13:26] LABS: Hep A Ab, Total Positive (Negative); Hep B Core Ab, Total Positive (Negative); Hep B Surface Ab, Qual Non Reactive (.); Hepatitis B Core Antibody, IgM Negative (Negative)
[2023-07-25 20:13] LABS: HCV Genotype Charge YES; Hepatitis C Genotype 3 (.)
[2023-07-30 17:46] LABS: Acetone <0.010 g/dL (0.000-0.010); Butalbital <1 ug/mL (1-10); Chlordiazepoxide <0.1 ug/mL (0.1-0.9); Diazepam <0.1 ug/mL (0.1-0.9); Ethanol <0.010 g/dL (0.000-0.010); Isopropanol <0.010 g/dL (0.000-0.010); Pentobarbital <1 ug/mL (1-5)
[2023-08-07 21:38] LABS: Hepatitis B Surface Antigen Negative
== END ==
PROVIDERS: PCP Family Medicine; Visit Provider Nurse Practitioner Family
DX: B18.2 Chronic viral hepatitis C (principal); Z11.4 Encounter for screening for human immunodeficiency virus [HIV]
CPT/HCPCS: 36415; 76705; 80053; 80306; 82105; 84703; 85014; 85018; 85048; 85049; 85610; 86703; 86704; 86706; 86708; 87340; 87522; 87900; 87902; G0432

== ENCOUNTER 2024-10-17 00:55 | Emergency (ER) | payer MEDICAID, SELFPAY ==
[2024-10-17 00:55] VITALS: BP 141/78; PULSE 97; RESP 18; TEMP 36.6; O2SAT 98; BMI 39.4
--- NOTE | 2024-10-17 01:16 | XR_ITS ---
PROCEDURE INFORMATION: Exam: XR Left Ankle Trauma Exam date and time: 10/17/2024 1:24 AM Age: 54 years old Clinical indication: Injury or trauma; Fall; Other: Pain; Additional info: Fall 3 days ago, foot/ankle pain TECHNIQUE: Imaging protocol: Radiologic exam of the left ankle. Views: 3 or more views. Trauma. COMPARISON: CR XR FOOT LT MIN 3V 10/17/2024 1:24 AM FINDINGS: Bones/joints: Normal. No acute fracture. No dislocation. Soft tissues: Moderate medial soft tissue swelling. IMPRESSION: No acute fracture or dislocation. Nonspecific medial soft tissue edema.
--- NOTE | 2024-10-17 01:16 | XR_ITS ---
PROCEDURE INFORMATION: Exam: XR Left Foot Exam date and time: 10/17/2024 1:24 AM Age: 54 years old Clinical indication: Injury or trauma; Fall; Other: Pain; Additional info: Fall 3 days ago, foot/ankle pain TECHNIQUE: Imaging protocol: Radiologic exam of the left foot. Views: 3 or more views. COMPARISON: CR XR FOOT LT MIN 3V 10/17/2024 1:24 AM FINDINGS: Bones/joints: Cortical and trabecular lucency at the base of the 2nd 3rd metatarsal. Soft tissues: Moderate dorsal soft tissue swelling. IMPRESSION: Cortical and trabecular lucency at the base of the 2nd and 3rd metatarsal. Consistent with nondisplaced fractures.
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
--- NOTE | 2024-10-17 01:31 | PC.NURSE ---
Patients contacted this facility regarding patients status, I went into the room to ask patient for permission to give her information over the phone in which the patient granted permission. Everything was thoroughly explained to Nora and he stated when she needed a ride to call him. Morales Minor [phone]
[2024-10-17] MEDS: IBUPROFEN 600 MG TABLET PO (01:33)
[2024-10-17] MEDS: ACETAMINOPHEN 500MG TAB 1000 MG PO (01:33)
--- NOTE | 2024-10-17 01:58 | CT_ITS ---
PROCEDURE INFORMATION: Exam: CT Left Lower Extremity, Foot Exam date and time: 10/17/2024 2:22 AM Age: 54 years old Clinical indication: Injury or trauma; Fall; Other: Pain; Additional info: Fall, abnormal CT, possible lisfranc TECHNIQUE: Imaging protocol: CT of the left lower extremity without contrast was performed. Exam focused on the foot. Radiation optimization: All CT scans at this facility use at least one of these dose optimization techniques: automated exposure control; mA and/or kV adjustment per patient size (includes targeted exams where dose is matched to clinical indication); or iterative reconstruction. COMPARISON: CR XR FOOT LT MIN 3V 10/17/2024 1:24 AM FINDINGS: Bones/joints: Cortical irregularity at the base of the 2nd, 3rd and 4th metatarsal. Curvilinear osseous density adjacent to the anteromedial cuboid. Soft tissues: Moderate dorsal soft tissue edema. IMPRESSION: 1. Cortical irregularity at the base of the 2nd, 3rd and 4th metatarsal. Consistent with nondisplaced fractures. 2. Curvilinear osseous density adjacent to the anteromedial cuboid. Consistent with avulsion fracture.
--- NOTE | 2024-10-17 02:30 | PC.NURSE ---
pt back in room from CT.
--- NOTE | 2024-10-17 02:55 | PC.NURSE ---
rounded on pt at this time. pt voices no needs at this time. call light in reach.
--- NOTE | 2024-10-17 03:24 | PC.NURSE ---
Contacted Rad to [facility] to [facility], then called [facility] to initiate a transfer for this patient, Dr. Lutz speaking with Dr. Mckeon at this time.
[2024-10-17] MEDS: METHOCARBAMOL 500MG TABLET 500 MG PO (03:32)
[2024-10-17] MEDS: OXYCODONE 5MG IMMEDIATE RELEASE TABLET 5 MG PO (03:33)
--- NOTE | 2024-10-17 04:19 | PC.NURSE ---
spoke with pts over the phone at this time. informed him that pt was ready for discharge at this time, that we are just waiting for [facility] to bring the pts wheelchair. He stated that we were just tired of her and thats why we are discharging her, asked what we would do with her if he couldn't come get her, why she wasn't having surgery on her foot now, and stated that she doesn't follow up on an outpatient basis. Educated pts that the pt is agreeable to DC and follow up out pt as this is what [facility] ortho has recommended she do, and that she does not need immediate surgery at this time. states that he will come pick her up.
--- NOTE | 2024-10-17 04:53 | PC.NURSE ---
[facility] dropped off pts wheelchair. Waiting on pts to pick her up at this time.
[2024-10-17 05:21] VITALS: BP 132/94; PULSE 82; RESP 18; TEMP 36.6; O2SAT 95
== END 2024-10-17 05:23 | disposition home or self-care (01) ==
PROVIDERS: Emergency Provider Emergency Medicine
DX: S92.215A Nondisplaced fracture of cuboid bone of left foot, initial encounter for closed fracture (principal); S92.352A Displaced fracture of fifth metatarsal bone, left foot, initial encounter for closed fracture; M25.572 Pain in left ankle and joints of left foot; Z72.0 Tobacco use; W01.0XXA Fall on same level from slipping, tripping and stumbling without subsequent striking against object, initial encounter; Y93.89 Activity, other specified; Y92.9 Unspecified place or not applicable
CPT/HCPCS: 73610; 73630; 73700; 99284

== ENCOUNTER 2024-10-30 14:40 | Outpatient (CLI) | payer MEDICAID, SELFPAY ==
[2024-10-30 16:17] LABS: Barbiturates Screen,Urine Negative ng/ml (<200)
[2024-10-30 16:18] LABS: Amphetamine/Metha Screen,Urine Negative ng/ml (<1000); Benzodiazepines Screen,Urine Positive ng/ml (<200)
[2024-10-30 16:19] LABS: Methadone Screen,Urine Negative ng/ml (<300)
[2024-10-30 16:20] LABS: Cannabinoid Screen,Urine Negative ng/ml (<50); Cocaine Screen,Urine Negative ng/ml (<300)
[2024-10-30 16:21] LABS: Opiate Screen,Urine Negative ng/ml (<300); Phencyclidine Screen,Urine Negative ng/ml (<25)
== END 2024-10-30 23:59 | disposition home or self-care (01) ==
LOC: LAB 14:44
PROVIDERS: Visit Provider Nurse Practitioner Psychiatric/Mental Health
DX: Z79.899 Other long term (current) drug therapy (principal); F41.0 Panic disorder [episodic paroxysmal anxiety]; F41.1 Generalized anxiety disorder; F43.12 Post-traumatic stress disorder, chronic
CPT/HCPCS: 80307